=== PATIENT | female | born 1990 | race Two or more races ===

== ENCOUNTER → 2024-10-10 | Outpatient (CLI) | payer BC, SELFPAY ==
[2024-10-20 07:01] LABS: Progesterone,LC/MS* 40.6 ng/mL
== END | disposition home or self-care (01) ==
LOC: SLDO 11:46
PROVIDERS: Referring Provider Specialist; Visit Provider Specialist
DX: N93.9 Abnormal uterine and vaginal bleeding, unspecified (principal)
CPT/HCPCS: 36415; 84144

== ENCOUNTER → 2024-11-13 | Outpatient (CLI) | payer OTHER, SELFPAY ==
[2024-11-13 17:02] LABS: HIV (1&2) Antibody Rapid Non-Reactive
[2024-11-13 17:24] LABS: Syphilis Nonreactive (Nonreactive)
[2024-11-13 17:33] LABS: Hepatitis B Surface Ab Reactive (Immune) (Immune); Hepatitis B Surface Antigen Non Reactive (Non React)
[2024-11-14 15:50] LABS: Chlamydia trachomatis PCR Negative (Not Detect); Neisseria Gonorrhoeae DNA PCR Negative (Not Detect); Trichomonas Negative (Negative)
[2024-11-15 23:34] LABS: HCV RNA, PCR <15 NOT DETECTED IU/mL
[2024-11-17 06:27] LABS: HCV RNA, PCR Log IU <1.18 NOT DETECTED Log IU/mL
== END | disposition home or self-care (01) ==
LOC: COPL 14:30
PROVIDERS: PCP Nurse Practitioner Family; Referring Provider Nurse Practitioner Family; Visit Provider Nurse Practitioner Family
DX: Z77.21 Contact with and (suspected) exposure to potentially hazardous body fluids (principal)
CPT/HCPCS: 36415; 86703; 86706; 86780; 87340; 87491; 87522; 87591; 87661

== ENCOUNTER → 2024-11-20 | Outpatient (CLI) | payer BC, SELFPAY ==
[2024-11-27 06:25] LABS: Progesterone,LC/MS* 15.2 ng/mL
== END | disposition home or self-care (01) ==
LOC: COPL 12:15
PROVIDERS: PCP Nurse Practitioner Family; Referring Provider Specialist; Visit Provider Specialist
DX: N93.9 Abnormal uterine and vaginal bleeding, unspecified (principal)
CPT/HCPCS: 36415; 84144

== ENCOUNTER → 2025-01-02 | Outpatient (CLI) | payer BC, SELFPAY ==
[2025-01-02 18:03] LABS: Beta HCG,Quantitative 2047 mIU/mL (<5.0)
[2025-01-14 06:52] LABS: Progesterone,LC/MS* 18.5 ng/mL
== END | disposition home or self-care (01) ==
LOC: SLDO 15:17
PROVIDERS: Referring Provider Specialist; Visit Provider Specialist
DX: O36.80X0 Pregnancy with inconclusive fetal viability, not applicable or unspecified (principal); Z3A.00 Weeks of gestation of pregnancy not specified
CPT/HCPCS: 36415; 84144; 84702

== ENCOUNTER → 2025-01-15 | Outpatient (CLI) | payer BC, SELFPAY ==
[2025-01-15 09:32] LABS: Quantiferon-TB* See Sep Rpt
[2025-01-15 10:36] LABS: Basophils % (Auto) 1 % (0-2.5); Eosinophils # (Auto) 0.1 Thou/mm3 (0.0-0.5); Eosinophils % (Auto) 1 % (0-10); Hematocrit 35.6 % (36.0-46.0); Hemoglobin 11.5 g/dL (12.0-16.0); Immature Granulocytes % (Auto) 0 % (0-0); Immature Granulocytes Auto 0.02 Thou/mm3 (0.00-0.00); Lymphocytes # (Auto) 2.5 Thou/mm3 (1.0-4.8); Lymphocytes % (Auto) 34 % (10-50); Mean Corpuscular HGB Conc 32.3 g/dl (31.0-37.0); Mean Corpuscular Hemoglobin 26.3 pg (25.0-35.0); Mean Corpuscular Volume 82 fL (80-100); Monocytes # (Auto) 0.3 Thou/mm3 (0.0-0.8); Monocytes % (Auto) 4 % (0-12); Neutrophils # (Auto) 4.5 Thou/mm3 (1.8-7.7); Neutrophils % (Auto) 61 % (37-80); Nucleated Red Blood Cell % 0 /100 WBC (0); Platelet Count 398 Thou/mm3 (140-440); RDW Standard Deviation 46.4 fL (36.4-46.3); Red Blood Count 4.37 Miln/mm3 (4.00-5.20); White Blood Count 7.4 Thou/mm3 (3.6-11.0)
[2025-01-15 10:52] LABS: Glucose Estimated Average 100 mg/dL (80-131); Hemoglobin A1C 5.1 % Hgb (4.8-6.0)
[2025-01-15 10:59] LABS: Creatinine (Component) 0.8 mg/dL (0.6-1.3); Glucose 91 mg/dL (74-106); eGFR > 60 See Note
[2025-01-15 11:07] LABS: Hepatitis B Surface Antigen Non Reactive (Non React); Rubella, IgG Antibody Reactive (Immune)
[2025-01-15 11:33] LABS: Beta HCG,Quantitative 35280 mIU/mL (<5.0)
[2025-01-15 15:02] LABS: Collection Type, Urine Clean Catch
[2025-01-15 16:50] LABS: Amphetamine/Methamp Scrn,U Negative (Negative); Barbiturate Screen,Urine Negative (Negative); Benzodiazepines Screen,Urine Negative (Negative); Benzoylecgonine Screen, Ur Negative (Negative); Fentanyl Screen,Urine Negative (Negative); Opiate Screen,Urine Negative (Negative); THC Screen,Urine Negative (Negative)
[2025-01-15 16:54] LABS: Bacteria,Urine Rare; Bilirubin,Urine Negative (Negative); Blood,Urine Negative (Negative); Color,Urine Yellow (Lt Yel-Yel); Glucose, Urine Negative (Negative); Ketones,Urine Negative (Negative); Leukocyte Esterase,Urine Negative (Negative); Nitrite,Urine Negative (Negative); Protein,Urine Trace (Neg - Trace); RBC,Urine 2 /hpf (0-3); Specific Gravity,Urine 1.025 (1.001-1.035); Squamous Epithelial Cell,Urine 16 /hpf (0-5); Urobilinogen,Urine Negative mg/dL (0.0-1.0); WBC,Urine 2 /hpf (0-5)
[2025-01-15 17:07] LABS: Clarity,Urine Hazy (Clear/Hazy)
[2025-01-16 10:08] LABS: BVAG Candida Positive (Negative); Bacterial Vaginosis Markers Negative (Negative); Candida glabrata Negative (Negative); Candida krusei PCR Negative (Negative); Trichomonas Negative (Negative)
[2025-01-18 17:52] LABS: HCV RNA, PCR <15 NOT DETECTED IU/mL
[2025-01-19 07:07] LABS: HCV RNA, PCR Log IU <1.18 NOT DETECTED Log IU/mL; HIV Ag/Ab, 4th Gen NON-REACTIVE
== END | disposition home or self-care (01) ==
PROVIDERS: PCP Nurse Practitioner Family; Referring Provider Physician Assistant Medical; Visit Provider Physician Assistant Medical
DX: O98.311 Other infections with a predominantly sexual mode of transmission complicating pregnancy, first trimester (principal); A59.01 Trichomonal vulvovaginitis; O98.811 Other maternal infectious and parasitic diseases complicating pregnancy, first trimester; B37.89 Other sites of candidiasis; Z3A.00 Weeks of gestation of pregnancy not specified
CPT/HCPCS: 36415; 80307; 81001; 81514; 82565; 82947; 83036; 84702; 85025; 86480; 86762; 86850; 86900; 86901; 87086; 87340; 87389; 87522

== ENCOUNTER → 2025-02-12 | Outpatient (CLI) | payer BC, SELFPAY ==
[2025-02-12 16:25] LABS: Glucose,1 Hour PP 50gm Dose 211 mg/dL (80-140)
== END | disposition home or self-care (01) ==
LOC: SLDO 15:27
PROVIDERS: Referring Provider Specialist; Visit Provider Specialist
DX: Z34.81 Encounter for supervision of other normal pregnancy, first trimester (principal)
CPT/HCPCS: 36415; 82950

== ENCOUNTER 2025-02-23 21:26 | Emergency (ER) | payer BC, SELFPAY ==
[2025-02-23 21:27] VITALS: BMI 34.3
[2025-02-24 00:07] VITALS: BP 131/83; PULSE 77; RESP 18; TEMP 37.1; O2SAT 98
--- NOTE | 2025-02-24 00:55 | XR_ITS ---
Examination: Complete OB ultrasound, less than 14 weeks, transabdominal Date and time of exam: February 24, 2025 0111 hrs. Indications: Vaginal bleeding and pelvic cramping beginning one week ago Technique: Obstetrical ultrasound images less than 14 weeks performed via transabdominal imaging Findings: A normal shaped single intrauterine gestation is present in the uterus. pole 6.3 cm corresponds to 12 weeks 5 day gestational age Cardiac motion 166 BPM Ultrasonographic survey of visible and placental structures unremarkable. Amniotic fluid volume appears appropriate for this estimated gestational age. Right ovary 2.7 cm arterial flow Left ovary 2.3 cm arterial flow Impression: Viable intrauterine gestation 12 weeks 5 days.
--- NOTE | 2025-02-24 00:56 | PD.EDABDPN ---
ED Abdominal Pain RME/HPI General Chief Complaint: Vaginal Bleeding Stated complaint: VAGINAL BLEEDING, 12 WKS , ABD CRAMPING Time seen by provider: 02/24/25 00:41 Arrival date/time: 02/23/25 21:26 RME / HPI RME / HPI narrative: Vaginal bleeding x 1 day with suprapubic cramping that radiates to her back. Reports saturating x 4 pantiliners and x 11 hours. Denies fever, chills, nausea, vomiting.a3 Related Data Home Medications ?Medication ?Instructions ?Recorded ?Confirmed vit no.95-ferrous 1 tab PO QDAY 12/19/19 11/12/22 fumarate 28 mg-folic acid 800 mcg tablet () Previous Rx's ?Medication ?Instructions ?Recorded codeine sulfate 30 mg tablet 30 mg PO QID PRN pain #20 tabs 11/16/22 ibuprofen 800 mg tablet 800 mg PO Q6H PRN pain #20 tabs 11/16/22 Allergies Allergy/AdvReac Type Severity Reaction Status Date / Time hydrocodone Allergy Severe CAN'T Verified 02/23/25 21:27 BREATHE ED Exam External exam: Present normal external exam Speculum exam: Present cervical discharge, vaginal bleeding and other (Cervical os appears closed. Scant white, fluffy discharge in vaginal canal. Scant red blood in vaginal canal.) Course Orders Category Date Time Status Pelvic Exam X1 Care 02/24/25 03:29 Active US OB <= 14 weeks fetus Stat Exams 02/24/25 00:55 Taken ABO/RH Type Stat Lab 02/24/25 01:00 Completed Beta HCG,Quantitative Stat Lab 02/24/25 01:00 Completed CBC Stat Lab 02/24/25 01:00 Completed CMP [Comprehensive Metabolic Panel] Stat Lab 02/24/25 01:00 Completed HCG,Qualitative Serum Stat Lab 02/24/25 01:00 Completed UA [Urinalysis] Stat Lab 02/24/25 01:53 Completed Acetaminophen Tab [Tylenol Tab] Med 02/24/25 00:55 Discontinued 650 mg PO X1 ONE Vital Signs Vital signs: Vital Signs Temperature 98.7 F 02/24/25 00:07 Pulse Rate 77 02/24/25 00:07 Respiratory Rate 18 02/24/25 00:07 Blood Pressure 131/83 H 02/24/25 00:07 Pulse Oximetry (%) 98 02/24/25 00:07 Oxygen Delivery Method Room Air 02/24/25 00:07 Abdominal Pain MDM Medications / Prescriptions Medication administrations:: Medication Administration History Discontinued Medications Acetaminophen (Acetaminophen 325 Mg Tablet) 650 mg PO X1 ONE Stop: 02/24/25 00:56 Last Admin: 02/24/25 02:07 Dose: 650 mg Documented By: MARI Discharge Plan Plan Patient Disposition: HOME (Self Care) Disposition Comment: stable Prescriptions/Referrals Prescriptions/Med Rec: No Action PNV cmb#95-ferrous fumarate-FA [] 28 mg iron- 800 mcg Tablet 1 tab PO QDAY ibuprofen 800 mg tablet 800 mg PO Q6H PRN (Reason: pain) Qty: 20 0RF codeine sulfate 30 mg tablet 30 mg PO QID MDD 4 PRN (Reason: pain) Qty: 20 0RF Referrals: Flores Jones FNP [Primary Care Provider] - In 1 week Problem List Clinical Impression: Vaginal bleeding during , Threatened Impression comment: Follow-up with OB within the next 24 to 48 hours for further evaluation and treatment. You may continue taking Tylenol as needed for abdominal pain. Return to the ED if your symptoms worsen or change. Beta-hCG today 53682. Baby measuring 12weeks 5 days. Hr 166. Patient/Caregiver Discharge Instructions Other Activity Instructions:: Follow-up with OB within the next 24 to 48 hours for further evaluation and treatment. You may continue taking Tylenol as needed for abdominal pain. Return to the ED if your symptoms worsen or change. Beta-hCG today 76670. Baby measuring 12weeks 5 days. Hr 166. Education Materials: Bleeding During Early , ED Possible Miscarriage ... Print Language: Belarusian Stand Alone Forms: Eli Award Info., Patient Portal Info Letter PA/CRANE LADLE PERSON Supervising Physician HARDEEP/CRANE LADLE PERSON Supervising Physician: Dr. Sims
[2025-02-24 01:14] LABS: Basophils # (Auto) 0.1 Thou/mm3 (0.0-0.2); Basophils % (Auto) 1 % (0-2.5); Eosinophils # (Auto) 0.1 Thou/mm3 (0.0-0.5); Eosinophils % (Auto) 1 % (0-10); Hematocrit 33.8 % (36.0-46.0); Immature Granulocytes % (Auto) 0 % (0-0); Immature Granulocytes Auto 0.03 Thou/mm3 (0.00-0.00); Lymphocytes # (Auto) 3.5 Thou/mm3 (1.0-4.8); Lymphocytes % (Auto) 33 % (10-50); Mean Corpuscular HGB Conc 32.5 g/dl (31.0-37.0); Mean Corpuscular Hemoglobin 25.7 pg (25.0-35.0); Mean Corpuscular Volume 79 fL (80-100); Monocytes # (Auto) 0.5 Thou/mm3 (0.0-0.8); Monocytes % (Auto) 5 % (0-12); Neutrophils # (Auto) 6.5 Thou/mm3 (1.8-7.7); Neutrophils % (Auto) 61 % (37-80); Nucleated Red Blood Cell % 0 /100 WBC (0); Platelet Count 384 Thou/mm3 (140-440); RDW Standard Deviation 44.4 fL (36.4-46.3); Red Blood Count 4.28 Miln/mm3 (4.00-5.20); White Blood Count 10.7 Thou/mm3 (3.6-11.0)
[2025-02-24 01:32] LABS: HCG,Qualitative Serum Positive
[2025-02-24 01:35] LABS: Alanine Aminotransferase 21 U/L (10-49); Albumin, Serum 4.3 gm/dL (3.5-5.0); Albumin/Globulin Ratio 1.3 (1.2-2.2); Alkaline Phosphatase 68 U/L (46-116); Anion Gap 8 (7-16); Aspartate Amino Transferase 29 U/L (0-34); BUN/Creatinine Ratio 11 Ratio (12-20); Bilirubin,Total 0.3 mg/dL (0.3-1.2); Blood Urea Nitrogen 8 mg/dL (9-23); Carbon Dioxide 25.5 mMol/L (20.0-31.0); Chloride 105 mMol/L (98-107); Creatinine (Component) 0.7 mg/dL (0.6-1.3); Estimated Creatinine Clearance 123.5 mL/min (>60); Globulin 3.3 gm/dL (2.3-3.5); Glucose 99 mg/dL (74-106); Osmolality,Calculated 273 (275-295); Potassium 4.1 mMol/L (3.4-5.1); Sodium 138 mMol/L (136-145); Total Protein 7.6 gm/dL (5.7-8.2); eGFR > 60 See Note
[2025-02-24] MEDS: ACETAMINOPHEN 325 MG TABLET 650 MG PO (02:07)
[2025-02-24 02:10] LABS: Collection Type, Urine Clean Catch
[2025-02-24 02:37] LABS: Bacteria,Urine 1+; Bilirubin,Urine Negative (Negative); Blood,Urine 2+ (Negative); Clarity,Urine Turbid (Clear/Hazy); Color,Urine Yellow (Lt Yel-Yel); Glucose, Urine Negative (Negative); Ketones,Urine Negative (Negative); Leukocyte Esterase,Urine Positive (Negative); Nitrite,Urine Negative (Negative); Protein,Urine Trace (Neg - Trace); RBC,Urine 6 /hpf (0-3); Specific Gravity,Urine 1.023 (1.001-1.035); Squamous Epithelial Cell,Urine 11 /hpf (0-5); Urobilinogen,Urine Negative mg/dL (0.0-1.0); WBC,Urine 5 /hpf (0-5)
[2025-02-24 02:53] VITALS: BP 104/70; PULSE 85; RESP 16; TEMP 37; O2SAT 97
[2025-02-24 02:54] LABS: Beta HCG,Quantitative 28764 mIU/mL (<5.0)
--- NOTE | 2025-02-24 03:24 | PRELIM_ITS ---
Obstetric ultrasound (transabdominal). February 24, 2025 0111 hours Clinical history: Vaginal bleed No prior study is available for comparison. Findings: There is an intrauterine gestation with a single live fetus of mean gestational age 12 weeks and 5 days, crown rump length is 6.3 cm. cardiac activity is present at heart rate of 166 beats per minute. Estimated due date by ultrasound is September 03, 2025. The uterus measures 11 x 11 x 8 cm. The right ovary measures 2.7 x 1.6 x 2.2 cm. The left ovary measures 2.3 x 1.7 x 1.5 cm. Both ovaries demonstrate normal color flow signal and spectral waveforms on Doppler evaluation. There is no free fluid in the pelvis. Impression: Intrauterine gestation with a single live fetus of mean gestational age 12 weeks and 5 days. Report Electronically Signed By: Amilcar Gabriel 02/24/2025 3:24:07 AM [EST]
== END 2025-02-24 05:09 | disposition home or self-care (01) ==
PROVIDERS: Physician Assistant; Emergency Provider Emergency Medicine; PCP Nurse Practitioner Family
DX: O20.0 Threatened abortion (principal); Z3A.12 12 weeks gestation of pregnancy
CPT/HCPCS: 36415; 76801; 80053; 81001; 84702; 84703; 85025; 86900; 86901; 99284; A9270

== ENCOUNTER 2025-05-15 11:30 | Observation (INO) | payer BC, SELFPAY ==
[2025-05-15 11:48] VITALS: BP 108/63; PULSE 79
[2025-05-15 11:55] VITALS: TEMP 36.9; BMI 37.8
[2025-05-15 13:06] LABS: Collection Type, Urine Clean Catch
[2025-05-15 13:15] LABS: Bacteria,Urine Rare; Bilirubin,Urine Negative (Negative); Blood,Urine Negative (Negative); Color,Urine Lt-Yellow (Lt Yel-Yel); Culture Indicated,Urine Not Indicated; Glucose, Urine Negative (Negative); Ketones,Urine Negative (Negative); Leukocyte Esterase,Urine Positive (Negative); Nitrite,Urine Negative (Negative); PH,Urine 7.5 (5.0-7.0); Protein,Urine Negative (Neg - Trace); RBC,Urine 4 /hpf (0-3); Squamous Epithelial Cell,Urine 8 /hpf (0-5); Urobilinogen,Urine Negative mg/dL (0.0-1.0); WBC,Urine 1 /hpf (0-5)
[2025-05-15 13:27] LABS: Clarity,Urine Hazy (Clear/Hazy)
[2025-05-16 08:33] LABS: BVAG Candida Positive (Negative); Bacterial Vaginosis Markers Negative (Negative); Candida glabrata Negative (Negative); Candida krusei PCR Negative (Negative); Trichomonas Negative (Negative)
== END 2025-05-15 14:00 | disposition home or self-care (01) ==
PROVIDERS: Admitting Provider Obstetrics & Gynecology; Visit Provider Obstetrics & Gynecology
DX: O26.892 Other specified pregnancy related conditions, second trimester (principal); Z3A.24 24 weeks gestation of pregnancy; M54.50 Low back pain, unspecified; R10.30 Lower abdominal pain, unspecified
CPT/HCPCS: 59025; 59899; 81001; 81514

== ENCOUNTER → 2025-05-15 | Outpatient (CLI) | payer BC, SELFPAY | END | disposition home or self-care (01) | LOC: SLDO 14:12 | PROVIDERS: Referring Provider Physician Assistant Medical; Visit Provider Physician Assistant Medical | DX: R10.2 Pelvic and perineal pain (principal) | CPT/HCPCS: 87086 ==

== ENCOUNTER → 2025-05-21 | Outpatient (CLI) | payer BC, SELFPAY | END | disposition home or self-care (01) | LOC: SLDO 14:29 | PROVIDERS: PCP Physician Assistant Medical; Referring Provider Physician Assistant Medical; Visit Provider Physician Assistant Medical | DX: R10.2 Pelvic and perineal pain (principal) | CPT/HCPCS: 87086 ==

== ENCOUNTER → 2025-06-25 | Outpatient (CLI) | payer BC, SELFPAY ==
[2025-06-25 16:01] LABS: Basophils # (Auto) 0.0 Thou/mm3 (0.0-0.2); Basophils % (Auto) 0 % (0-2.5); Eosinophils # (Auto) 0.1 Thou/mm3 (0.0-0.5); Eosinophils % (Auto) 1 % (0-10); Hematocrit 39.7 % (36.0-46.0); Hemoglobin 11.6 g/dL (12.0-16.0); Immature Granulocytes Auto 0.05 Thou/mm3 (0.00-0.00); Lymphocytes # (Auto) 1.8 Thou/mm3 (1.0-4.8); Lymphocytes % (Auto) 18 % (10-50); Mean Corpuscular HGB Conc 29.2 g/dl (31.0-37.0); Mean Corpuscular Hemoglobin 28.0 pg (25.0-35.0); Mean Corpuscular Volume 96 fL (80-100); Monocytes # (Auto) 0.5 Thou/mm3 (0.0-0.8); Monocytes % (Auto) 5 % (0-12); Neutrophils # (Auto) 7.7 Thou/mm3 (1.8-7.7); Neutrophils % (Auto) 76 % (37-80); Nucleated Red Blood Cell # 0.00 Thou/mm3 (0.00-0.00); Nucleated Red Blood Cell % 0 /100 WBC (0); Platelet Count 371 Thou/mm3 (140-440); RDW Standard Deviation 58.7 fL (36.4-46.3); Red Blood Count 4.15 Miln/mm3 (4.00-5.20); White Blood Count 10.1 Thou/mm3 (3.6-11.0)
[2025-06-25 16:41] LABS: Syphilis Nonreactive (Nonreactive)
== END | disposition home or self-care (01) ==
LOC: SLDO 14:33
PROVIDERS: Referring Provider Specialist; Visit Provider Specialist
DX: Z34.83 Encounter for supervision of other normal pregnancy, third trimester (principal)
CPT/HCPCS: 36415; 85025; 86780

== ENCOUNTER → 2025-07-06 | Outpatient (CLI) | payer BC, SELFPAY ==
[2025-07-07 10:04] LABS: BVAG Candida Positive (Negative); Bacterial Vaginosis Markers Negative (Negative); Candida glabrata Negative (Negative); Candida krusei PCR Negative (Negative); Trichomonas Negative (Negative)
== END | disposition home or self-care (01) ==
LOC: SLDO 15:11
PROVIDERS: Referring Provider Physician Assistant Medical; Visit Provider Physician Assistant Medical
DX: Z34.83 Encounter for supervision of other normal pregnancy, third trimester (principal); Z3A.00 Weeks of gestation of pregnancy not specified
CPT/HCPCS: 81514

== ENCOUNTER → 2025-08-06 | Outpatient (CLI) | payer BC, SELFPAY ==
[2025-08-07 09:34] LABS: BVAG Candida Negative (Negative); Bacterial Vaginosis Markers Negative (Negative); Candida glabrata Negative (Negative); Candida krusei PCR Negative (Negative); Trichomonas Negative (Negative)
== END | disposition home or self-care (01) ==
LOC: SLDO 14:17
PROVIDERS: Referring Provider Specialist; Visit Provider Specialist
DX: Z34.83 Encounter for supervision of other normal pregnancy, third trimester (principal)
CPT/HCPCS: 81514

== ENCOUNTER 2025-08-20 11:44 | Inpatient (IN) | payer BC, SELFPAY ==
[2025-08-20] VITALS (15 sets, daily range): BP systolic 99–141; BP diastolic 66–94; PULSE 72–81; RESP 12–99; TEMP 36.4–37; O2SAT 96–99; BMI 41.0
--- NOTE | 2025-08-20 10:36 | XR_ITS ---
Examination: Biophysical profile, ultrasound Date and time of exam: August 20, 2025, 1054 hours INDICATIONS: Nonreactive NST in the doctor's office today Technique: Multiple transabdominal sonographic images of the pelvis abdomen obtained. Attention is directed to the breathing movement, gross body movement, amniotic fluid volume and tone. Findings: Amniotic fluid index 17.1 cm Total biophysical profile is 8 of 8. breathing movement is 2. Gross body movement is 2. tone is 2. Qualitative amniotic fluid volume is 2 Impression: Biophysical profile is 8 of 8.
[2025-08-20 13:27] LABS: Basophils # (Auto) 0.0 Thou/mm3 (0.0-0.2); Basophils % (Auto) 0 % (0-2.5); Eosinophils # (Auto) 0.0 Thou/mm3 (0.0-0.5); Eosinophils % (Auto) 0 % (0-10); Hematocrit 35.3 % (36.0-46.0); Hemoglobin 11.5 g/dL (12.0-16.0); Immature Granulocytes Auto 0.03 Thou/mm3 (0.00-0.00); Lymphocytes # (Auto) 1.8 Thou/mm3 (1.0-4.8); Lymphocytes % (Auto) 19 % (10-50); Mean Corpuscular HGB Conc 32.6 g/dl (31.0-37.0); Mean Corpuscular Hemoglobin 27.7 pg (25.0-35.0); Mean Corpuscular Volume 85 fL (80-100); Monocytes # (Auto) 0.4 Thou/mm3 (0.0-0.8); Monocytes % (Auto) 4 % (0-12); Neutrophils # (Auto) 7.4 Thou/mm3 (1.8-7.7); Neutrophils % (Auto) 76 % (37-80); Nucleated Red Blood Cell # 0.00 Thou/mm3 (0.00-0.00); Nucleated Red Blood Cell % 0 /100 WBC (0); Platelet Count 271 Thou/mm3 (140-440); RDW Standard Deviation 47.2 fL (36.4-46.3); Red Blood Count 4.15 Miln/mm3 (4.00-5.20); White Blood Count 9.7 Thou/mm3 (3.6-11.0)
[2025-08-20 14:01] LABS: INR 0.9 (0.9-1.3); Partial Thromboplastin Time 24.3 Seconds (22.0-36.0); Prothrombin Time 9.9 Seconds (9.0-12.2)
[2025-08-20 14:09] LABS: Alanine Aminotransferase 9 U/L (10-49); Albumin, Serum 3.6 gm/dL (3.5-5.0); Albumin/Globulin Ratio 1.3 (1.2-2.2); Alkaline Phosphatase 83 U/L (46-116); Anion Gap 11 (7-16); Aspartate Amino Transferase 19 U/L (0-34); BUN/Creatinine Ratio 7 Ratio (12-20); Bilirubin,Total 0.5 mg/dL (0.3-1.2); Blood Urea Nitrogen < 5 mg/dL (9-23); Calcium 8.7 mg/dL (8.3-10.6); Calcium (Corrected) 9.0 mg/dL (8.5-10.1); Carbon Dioxide 23.6 mMol/L (20.0-31.0); Chloride 105 mMol/L (98-107); Creatinine (Component) 0.7 mg/dL (0.6-1.3); Estimated Creatinine Clearance 136.2 mL/min (>60); Globulin 2.7 gm/dL (2.3-3.5); Glucose 85 mg/dL (74-106); Osmolality,Calculated 275 (275-295); Potassium 4.0 mMol/L (3.4-5.1); Sodium 140 mMol/L (136-145); Total Protein 6.3 gm/dL (5.7-8.2); Uric Acid 4.6 mg/dL (3.1-7.8); eGFR > 60 See Note
[2025-08-20 14:17] LABS: Fibrinogen 628 mg/dL (175-375); Syphilis Nonreactive (Nonreactive)
[2025-08-20] MEDS: RINGERS LACTATED 1000 ML 1,000 ML 100 ML IV (15:30)
[2025-08-20] MEDS: FAMOTIDINE INJ 10 MG/ML VIAL 2 ML 20 MG IV (15:49)
[2025-08-20] MEDS: ceFAZolin/D5W 2 GM IV 2 GM/100 ML BAG IV (15:49)
--- NOTE | 2025-08-20 16:07 | PD.LDHP ---
Documentation for date of: 08/20/25 OB Labor/Induct. HPI History of Present Illness : 8 Para: 4 Term pregnancies: 4 pregnancies: 0 Living children: 4 History of Abortions: Spontaneous and Elective: 2 History of Vaginal deliveries: 0 History of sections: Yes History of : No CEM: 09/02/25 History of present illness: 34-year-old 8 para 4-0-3-4 with intrauterine at 38 weeks and 1 day who was seen in the office today for routine antepartum testing and visit.. The NST was nonreactive. She has plenty of movement and there are accelerations that are about 10 x 10 but not meeting the 15 x 15 required to be reassured. A biophysical profile was performed today and the score was 8 out of 8 the MOHINDER was 17. Her diabetes has been well-controlled on evening insulin NPH. Serial ultrasounds with MFM have been reassuring. History of Present Adequate Care: Yes Labs Labs: Positive: Rubella Titre, Negative: RPR, Hepatitis B, HIV, Chlamydia and Gonorrhea and Unknown: Herpes Type 1, Herpes Type 2, Group Beta Strep and Covid-19 Review of Systems Review of Systems Narrative Review of Systems: Denies any chest pain palpitations cough fever shortness of breath or lower extremity pain. She denies any headache change in vision or right upper quadrant pain. She denies any lower extremity pain or swelling. Past Medical History Surgical History SURGICAL: Positive Section Meds Home Medications and Allergies Home Medications ?Medication ?Instructions ?Recorded ?Confirmed ?Type vit no.95-ferrous 1 tab PO QDAY 12/19/19 11/12/22 History fumarate 28 mg-folic acid 800 mcg tablet () Allergies Allergy/AdvReac Type Severity Reaction Status Date / Time hydrocodone Allergy Severe CAN'T Verified 02/23/25 21:27 BREATHE OB Exam Physical Exam Vital signs: Temp Pulse Resp BP 98.6 F 74 18 119/76 08/20/25 10:36 08/20/25 15:26 08/20/25 10:36 08/20/25 15:26 Routine HEENT Exam Comments: Oropharynx and sclera clear Routine Respiratory Exam Comments: Clear to auscultation bilaterally Routine Cardiovascular Exam Comments: Regular rate and rhythm Routine Abdominal Exam Comments: gravid term size, old scar intact Routine Extremities Exam Comments: Nontender or edema OB Results Labs 08/20/25 13:00 08/20/25 13:00 Labs: Short CBC 08/20/25 Range/Units 13:00 WBC 9.7 (3.6-11.0) Thou/mm3 Hgb 11.5 L (12.0-16.0) g/dL Hct 35.3 L (36.0-46.0) % Plt Count 271 (140-440) Thou/mm3 BMP 08/20/25 13:00 Sodium 140 Potassium 4.0 Chloride 105 Carbon Dioxide 23.6 BUN < 5 L Creatinine 0.7 Glucose 85 Calcium 8.7 Liver Function 08/20/25 Range/Units 13:00 Total Bilirubin 0.5 (0.3-1.2) mg/dL AST 19 (0-34) U/L ALT 9 L (10-49) U/L Alkaline Phosphatase 83 (46-116) U/L Albumin 3.6 (3.5-5.0) gm/dL Impressions Impression: Intrauterine at 38 weeks and 1 day Class B diabetes mellitus well-controlled Nonreactive nonstress test Multiparity desires voluntary sterilization delivery and bilateral tubal ligation Informed consent was obtained. The patient was made aware of the risk complications alternatives and benefits of the proposed procedure and she agrees. She is aware of the failure rate and increased risk of tubal ectopic gestation of occurs. She is aware of the reversible methods of control and she declines those methods. She is aware of the option of vasectomy and her male partner declines that option
--- NOTE | 2025-08-20 17:23 | ESOP_ITS ---
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 Date of procedure: 08/20/25 Procedure Performed: Repeat low-transverse section via Fenistil skin incision Bilateral salpingectomy Lysis of adhesions Indication: Intrauterine at 38 weeks and 1 day Class B diabetes mellitus well-controlled Nonreactive nonstress test Previous delivery elects repeat delivery Multiparity desires voluntary sterilization Pre-Op diagnosis: Intrauterine at 38 weeks and 1 day Class B diabetes mellitus well-controlled Nonreactive nonstress test Previous delivery elects repeat delivery Multiparity desires voluntary sterilization Post-Op diagnosis: Intrauterine at 38 weeks and 1 day Class B diabetes mellitus well-controlled Nonreactive nonstress test Previous delivery elects repeat delivery Multiparity desires voluntary sterilization Pelvic adhesions Anesthesia type: Spinal Procedure description: After proper informed consent was obtained and the patient was made aware of the risks, complications, alternatives and benefits of the proposed procedure she was taken to the operating room where she underwent induction of spinal anesthesia. She was prepped and draped in the usual sterile fashion. A timeout was performed.? A Pfannenstiel skin incision was made with the scalpel and carried through to the underlying layer of fascia with the Bovie. The fascia was nicked in the midline incision and the incision was extended bilaterally with the Bovie. The inferior aspect of the fascial incision was grasped with Wilmer clamps elevated and the underlying rectus muscle dissected off with the Bovie. The superior aspect the fascial incision was grasped with Wilmer clamps elevated and the underlying rectus muscle dissected off with the Bovie. The rectus muscles were in the midline. The peritoneum was grasped between 2 Grissom clamps and entered sharply with the Metzenbaum scissors. The peritoneum was extended superiorly and inferiorly with good visualization of the bladder. The vesicouterine peritoneum was incised transversely and the bladder flap created digitally. A [place] blade was inserted. A low transverse incision was made in the uterus with a scapel and the incision was extended digitally. The infant's head delivered and the mouth and nose were suctioned with the bulb suction. The shoulder and body delivered atraumatically. The cord was clamped after 30 second delayed cord clamping and the cord was cut.? The female was handed off to the waiting Pediatric staff, cord blood was collected for lab testing. The placenta was removed complete and intact. The uterus was exteriorized and cleared of all clots and debris. The uterine incision was closed with #1-0 chromic catgut suture in a running interlocking fashion. A second layer of the same suture was used to imbricate the first layer and obtain excellent hemostasis. The vesicouterine peritoneum was closed with 2-0 chromic catgut suture in a running fashion. Attention was turned to the right fallopian tube which was grasped at the fimbriated end with a Ketty clamp and using the Enseal X-1 large jaw a left salpingectomy was performed. Adhesions were lysed with the Enseal at the fimbriated end. Hemostasis achieved. Attention was turned to the left fallopian tube which was grasped at the ampullary end with a Ghent clamp and using the Enseal X-1 large jaw a left salpingectomy was performed at the end closest to the uterus and then at the fimbriated end a portion was removed. The middle portion was adherent to the mesosalpinx and therefore hard to distinguish borders and therefore decided not to remove. Hemostasis achieved. The firm uterus was returned to the abdomen. The gutters were cleared of all clots and debris. The adnexae were revisualized along with the lower uterine segment and all was hemostatic. The peritoneum was closed with 0 chromic catgut suture in running fashion. The rectus muscle was closed with 0 chromic catgut suture. The fascia was closed with 0 Vicryl beginning at each angle and ending in the center in a running fashion. The subcutaneous tissue was irrigated with warmed normal saline solution and found to be hemostatic. The subcutaneous tissue was closed with 2-0 chromic catgut suture in a running fashion. The skin was closed with 4-0 Monocryl. A Dermabond Prineo dressing was applied and a sterile pressure dressing was applied.? She tolerated the procedure well. Counts were correct. I discussed with the patient the nature of her condition, intraoperative findings and expectation for recovery all questions answered. Specimen: left tube and right tube Estimated blood loss (ml): 600 Findings: Live female Apgars 8 and 9 Cephalic presentation Weight 6'4 Clear amniotic fluid Uterus initially atonic but responded to uterotonic's Left fallopian tube adherent to the mesosalpinx Right fallopian tube appeared normal with a paratubal cyst at the fimbriated end Placenta removed complete intact Complications: other (Uterine atony) Surgical staff Juvenal Davis, TD Mcfarlane Dr Surgeon Operation Date: 08/20/25 16:15 <No data on this case meets the specified criteria> Diagnosis Problem List Completed Was Problem List Reviewed/Reconciled?: Yes
--- NOTE | 2025-08-20 17:33 | PD.LDDELS ---
Data ([place]) Data Hx Section: Yes : 8 Term: 4 : 0 Livin Abortions: Spontaneous & Theraputic: 2 Delivery Data ([place]) Labor Data ROM date: 08/20/25 ROM time: 16:35 Amniotic membrane rupture type: Artificial Amniotic fluid description: Clear Delivery Data EDC: 09/02/25 EDC calculated by:: LMP/early US confirmation Golden delivery date: 08/20/25 delivery time: 16:36 Gestational age (weeks): 38 Gestational age (days): 1 Placenta delivery date: 08/20/25 Placenta delivery time: 16:37 Delivered by: Cory Churchill Delivery nurse: elsa escobedo RN [place] nurse: roosevelt lacey RN Trampoline Team Coach at delivery: No Support person(s) at delivery: FOB Other staff at delivery: Lucie Montgomery RN, judith Wright CRNA, benom Delivery Method Delivery method: Low Transverse Presentation: Vertex Anesthesia Type Anesthesia Type: Spinal Anesthesia type: Spinal Placenta Placenta delivery description: Spontaneous Cord blood sent to lab: Yes cord blood collection: Cord Blood Type Episiotomy Episiotomy description: None EBL Estimated blood loss (ml): 600 Umbilical Cord cord description: 3 Vessels Additional Procedures Bilateral salpingectomy Complications Complications: None Data ([place]) Golden Data order: 1 Golden's gender: Female weight (gms): 6 lb 4 oz 1 minute: 8 5 minutes: 9
--- NOTE | 2025-08-20 17:36 | PD.LDDS ---
DS: Providers Provider Date of admission: 08/20/25 11:44 Primary care physician: Physician No Primary/Family Admitting Provider: Cory Churchill MD Attending Provider on Admission: Cory Churchill MD Attending Provider on DC: Cory Churchill MD Discharging Provider: Cory Churchill MD DS: Diagnosis Problem List Completed Was Problem List Reviewed/Reconciled?: Yes Summary/Hosp Course Brief History: 34-year-old 8 para 4-0-3-4 with intrauterine at 38 weeks and 1 day who was seen in the office today for routine antepartum testing and visit.. The NST was nonreactive. She has plenty of movement and there are accelerations that are about 10 x 10 but not meeting the 15 x 15 required to be reassured. A biophysical profile was performed today and the score was 8 out of 8 the MOHINDER was 17. Her diabetes has been well-controlled on evening insulin NPH. Serial ultrasounds with MFM have been reassuring. Peripartum Data Delivery Method: Low Transverse Episiotomy Description: None Procedures: Procedures Operation Date: 08/20/25 16:15 <No data on this case meets the specified criteria> Time Spent with Patient Time attestation: Total time spent providing and/or coordinating discharge services: Exam Vital Signs Temp Pulse Resp BP 98.6 F 74 18 119/76 08/20/25 10:36 08/20/25 15:26 08/20/25 10:36 08/20/25 15:26 Discharge Plan Plan Patient Disposition: HOME (Self Care) Patient condition on transfer: Stable Prescriptions/Referrals Prescriptions/Med Rec: No Action PNV no.95-ferrous fumarate-FA [] 28 mg iron- 800 mcg Tablet 1 tab PO QDAY ibuprofen 800 mg tablet 800 mg PO Q6H PRN (Reason: pain) Qty: 20 0RF codeine sulfate 30 mg tablet 30 mg PO QID MDD 4 PRN (Reason: pain) Qty: 20 0RF Referrals: No Primary/Family,Physician [Primary Care Provider] Patient/Caregiver Discharge Instructions Discharge Activity: activity as tolerated Other Discharge Activity Instructions:: Follow up office 1 week. Education Materials: C Section Dc Print Language: Bengali Stand Alone Forms: Eli Award Info., Patient Portal Info Letter Planned Discharge Date 08/22/25
[2025-08-20] MEDS: KETOROLAC INJ 30 MG/ML VIAL IVP (18:48)
[2025-08-20] MEDS: OXYTOCIN in NS 20 units 20 UNIT/1,000 ML BAG 125 UNIT IV (22:17)
[2025-08-20 23:16] LABS: Basophils # (Auto) 0.1 Thou/mm3 (0.0-0.2); Basophils % (Auto) 0 % (0-2.5); Eosinophils # (Auto) 0.0 Thou/mm3 (0.0-0.5); Eosinophils % (Auto) 0 % (0-10); Hematocrit 36.4 % (36.0-46.0); Hemoglobin 11.9 g/dL (12.0-16.0); Immature Granulocytes Auto 0.06 Thou/mm3 (0.00-0.00); Lymphocytes # (Auto) 1.9 Thou/mm3 (1.0-4.8); Lymphocytes % (Auto) 13 % (10-50); Mean Corpuscular HGB Conc 32.7 g/dl (31.0-37.0); Mean Corpuscular Hemoglobin 27.6 pg (25.0-35.0); Mean Corpuscular Volume 85 fL (80-100); Monocytes # (Auto) 0.5 Thou/mm3 (0.0-0.8); Monocytes % (Auto) 3 % (0-12); Neutrophils # (Auto) 12.6 Thou/mm3 (1.8-7.7); Neutrophils % (Auto) 83 % (37-80); Nucleated Red Blood Cell # 0.00 Thou/mm3 (0.00-0.00); Nucleated Red Blood Cell % 0 /100 WBC (0); Platelet Count 252 Thou/mm3 (140-440); RDW Standard Deviation 46.5 fL (36.4-46.3); Red Blood Count 4.31 Miln/mm3 (4.00-5.20); White Blood Count 15.2 Thou/mm3 (3.6-11.0)
[2025-08-21 00:13] VITALS: BP 115/76; PULSE 89; RESP 16; TEMP 37.2; O2SAT 97
[2025-08-21] MEDS: KETOROLAC INJ 30 MG/ML VIAL IVP ×2 (03:50→16:05)
[2025-08-21 04:00] VITALS: BP 117/79; PULSE 93; RESP 17; TEMP 37.1; O2SAT 97
[2025-08-21 07:30] VITALS: BP 110/76; PULSE 96; RESP 17; TEMP 36.7; O2SAT 97
[2025-08-21] MEDS: RINGERS LACTATED 1000 ML 1,000 ML 100 ML IV (08:09)
[2025-08-21] MEDS: ENOXAPARIN SOD INJ 40 MG/0.4 ML SYRINGE SC (08:09)
[2025-08-21] MEDS: DOCUSATE SOD 100 MG CAPSULE PO (08:10)
[2025-08-21 11:10] VITALS: BP 120/84; PULSE 92; RESP 17; TEMP 36.9; O2SAT 98
--- NOTE | 2025-08-21 11:53 | ESPR_ITS ---
RE: YRN ARECHIGA : 1990 DATE OF SERVICE: 08/21/2025 S: Postop day #1, the patient denies any problem or complaints. She is voiding, ambulating and tolerating regular diet and passing flatus. She denies any excessive vaginal bleeding. She denies any dizziness or lightheadedness. She denies any chest pain, palpitations, shortness of breath or lower extremity pain. O: Vital Signs: Blood pressure is 110/76, heart rate 96, respirations 17, temperature is 98.1, pulse oximetry is 97% on room air. Lungs: Clear to auscultation bilaterally. Heart: Regular rate and rhythm. Abdomen: Dressing dry and intact. Fundus is firm. Extremities: Nontender. LABORATORY DATA: Hemoglobin pre-delivery is 11.5, post delivery is 11.9. ASSESSMENT: Postop day #1 status post delivery and bilateral salpingectomy with lysis of adhesions. P: Remove dressing. Discontinue IV. Encourage ambulation. counseling. Possible discharge home tomorrow. The patient no longer needs to follow the ADA diet or check blood sugars. She no longer needs to take insulin. DT: 11:03:47 TT: 11:51:00 Ref: [id number] - TID: [id number]
[2025-08-21 15:00] VITALS: BP 132/82; PULSE 92; RESP 18; TEMP 36.9; O2SAT 98
[2025-08-21] MEDS: SIMETHICONE 80 MG CHEW PO (16:11)
[2025-08-21 20:25] VITALS: BP 114/74; PULSE 96; RESP 20; TEMP 36.7; O2SAT 98
[2025-08-21] MEDS: IBUPROFEN TAB 400 MG TABLET 800 MG PO (22:42)
[2025-08-21] MEDS: ACETAMINOPHEN 325 MG TABLET 650 MG PO (22:42)
--- NOTE | 2025-08-22 04:14 | PD.LDPPPRG ---
Subjective Subjective Interval history: Patient denies any problem or complaint. She is voiding and ambulating and tolerating regular diet and passing flatus. She denies any dizziness or lightheadedness. She denies any excessive vaginal bleeding. She denies any chest pain palpitation shortness of breath or lower extremity pain. Exam Vital Signs Temp Pulse Resp BP Pulse Ox O2 Del Method 98.0 F 96 20 114/74 98 Room Air 08/21/25 20:25 08/21/25 20:25 08/21/25 20:25 08/21/25 20:25 08/21/25 20:25 08/21/25 20:25 Routine Respiratory Exam Comments: Clear to auscultation bilaterally Routine Cardiovascular Exam Comments: Regular rate and rhythm Routine Abdominal Exam Comments: Fundus is firm, nondistended abdomen, incision clear and intact Routine Extremities Exam Comments: Nontender Objective Labs 08/20/25 22:43 08/20/25 13:00 Impressions Impression: Postop day #2 status post delivery and bilateral salpingectomy Discharge home Discharge instructions given Follow-up in the office in 1 week Assessment & Plan Time Spent With Patient Time: Total time spent is greater than 50% in coordination of care (as documented) at patient's floor/unit and/or counseling patient:
[2025-08-22 04:22] VITALS: BP 110/75; PULSE 74; RESP 16; TEMP 36.4; O2SAT 98
[2025-08-22] MEDS: ACETAMINOPHEN 325 MG TABLET 650 MG PO (04:44)
[2025-08-22] MEDS: IBUPROFEN TAB 400 MG TABLET 800 MG PO (07:25)
[2025-08-22 08:00] VITALS: BP 123/75; PULSE 84; RESP 17; TEMP 36.8; O2SAT 98
[2025-08-22] MEDS: DOCUSATE SOD 100 MG CAPSULE PO (08:44)
[2025-08-22] MEDS: ENOXAPARIN SOD INJ 40 MG/0.4 ML SYRINGE SC (08:44)
== END 2025-08-22 15:40 | disposition home or self-care (01) | DRG 783 ==
LOC: S4S1 12:42 → S4SX 12:44 → S4NX 17:12 → S4SX 08-21 05:50
PROVIDERS: Admitting Provider Specialist; Referring Provider Specialist; Visit Provider Specialist
PROC: 0UL70ZZ Occlusion of Bilateral Fallopian Tubes, Open Approach (ICD-10-PCS; CPT 59514; principal; 2025-08-20 16:00)
DX: O34.211 Maternal care for low transverse scar from previous cesarean delivery (principal); O24.32 Unspecified pre-existing diabetes mellitus in childbirth; O34.83 Maternal care for other abnormalities of pelvic organs, third trimester; N83.8 Other noninflammatory disorders of ovary, fallopian tube and broad ligament; Z3A.38 38 weeks gestation of pregnancy; Z37.0 Single live birth; Z30.2 Encounter for sterilization; O62.2 Other uterine inertia; Z79.4 Long term (current) use of insulin; Z88.5 Allergy status to narcotic agent
CPT/HCPCS: 36415; 59409; 76819; 80053; 84550; 85025; 85384; 85610; 85730; 86780; 86850; 86900; 86901; 86923; 94762; J0689; J1650; J1885; J2210; J2274; J2371; J2590; J3490; J7120; A9270; J2270